=== PATIENT | male | born 1955 | race Caucasian/White ===

== ENCOUNTER 2023-03-25 05:25 | Inpatient (IN) | payer OTHER ==
[~2023-03-25] VITALS: Ht 170.2 cm; Wt 88.5 kg
[2023-03-25] MEDS ORDERED: ACETAMINOPHEN 500 MG TABLET ONE (05:39)
[2023-03-25] MEDS ORDERED: SCOPOLAMINE HYDROBROMIDE 1 MG PATCH .72 H (TRANSDERM-SCOP) TD ONE (05:39)
[2023-03-25] MEDS ORDERED: CELECOXIB 200 MG CAPSULE ONE (05:40)
[2023-03-25] MEDS ORDERED: oxyCODONE HCL 10 MG TAB.ER.12H PO ONE ×2 (05:40→06:00)
[2023-03-25] MEDS ORDERED: GABAPENTIN 300 MG CAPSULE ONE (05:40)
[2023-03-25] MEDS: CELECOXIB 200 MG CAPSULE PO ONE ×2 (06:00→06:20)
[2023-03-25] MEDS: ACETAMINOPHEN 500 MG TABLET PO ONE ×2 (06:00→06:20)
[2023-03-25] MEDS: GABAPENTIN 300 MG CAPSULE PO ONE ×2 (06:00→06:20)
[2023-03-25] MEDS: SCOPOLAMINE HYDROBROMIDE 1 MG PATCH .72 H (TRANSDERM-SCOP) TD ONE ×2 (06:00→06:20)
[2023-03-25] MEDS ORDERED: DIPHENHYDRAMINE HCL 25 MG CAPSULE PO PRN (07:15)
[2023-03-25] MEDS ORDERED: METOCLOPRAMIDE HCL 10 MG/2 ML VIAL IVP PRN (07:15)
[2023-03-25] MEDS ORDERED: NALOXONE HCL 0.4 MG/ML AMP (NARCAN) IVP PRN ×2 (07:15)
[2023-03-25] MEDS ORDERED: NALOXONE HCL 2 MG/2 ML SYR (NARCAN) IVP PRN (07:15)
[2023-03-25] MEDS ORDERED: DEXTROSE 50% JECT 50 ML DISP.SYRIN IVP PRN (07:15)
[2023-03-25] MEDS ORDERED: D5W 1,000 ML IV PRN (07:15)
[2023-03-25] MEDS ORDERED: LACTULOSE 20 GM/30 ML UDC PO PRN (07:15)
[2023-03-25] MEDS ORDERED: GLUCOSE (DEXTROSE) ORAL GEL -Adults PO PRN (07:15)
[2023-03-25] MEDS ORDERED: BISACODYL 10 MG/SUPPOSITORY RC PRN (07:15)
[2023-03-25] MEDS ORDERED: CEFAZOLIN SOD 2 GM in D5W 50 ML IV ONE (07:30)
[2023-03-25] MEDS ORDERED: BUPIVACAINE /PF 0.25% 30 ML VIAL INJ ONE (07:40)
[2023-03-25] MEDS ORDERED: TRANEXAMIC ACID 1,000 MG/10 ML VIAL ONE (07:40)
[2023-03-25] MEDS ORDERED: MIDAZOLAM HCL/PF 2 MG/2 ML SYRINGE ONE (07:40)
[2023-03-25] MEDS ORDERED: PROPOFOL 200MG/ 20ML VIAL (DIPRIVAN) IV ONE (07:40)
[2023-03-25] MEDS ORDERED: BUPIVACAINE /PF 0.5% 30 ML VIAL ONE (07:40)
[2023-03-25] MEDS ORDERED: fentaNYL CITRATE/PF 100 MCG/2 ML AMP ONE (07:40)
[2023-03-25] MEDS ORDERED: SEVOFLURANE 15 MIN GAS INH ONE (07:40)
[2023-03-25] MEDS ORDERED: ONDANSETRON HCL 4 MG/2 ML VIAL ONE (07:40)
[2023-03-25] MEDS ORDERED: METOCLOPRAMIDE HCL 10 MG/2 ML VIAL ONE (07:40)
[2023-03-25] MEDS ORDERED: GLYCOPYRROLATE 1 MG/5 ML VIAL ONE (07:40)
[2023-03-25] MEDS ORDERED: EPINEPHrine HCL 1 MG/ML VIAL ONE (07:40)
[2023-03-25] MEDS ORDERED: VANCOMYCIN HCL 1000 MG/VIAL IV ONE (07:40)
[2023-03-25] MEDS ORDERED: ESCI20TA PO (08:14)
[2023-03-25] MEDS ORDERED: GLIM2TAB PO (08:14)
[2023-03-25] MEDS ORDERED: TRAZ-250 PO (08:14)
[2023-03-25] MEDS ORDERED: OMEG10006 PO (08:14)
[2023-03-25] MEDS ORDERED: ROSU20TA2 PO (08:14)
[2023-03-25] MEDS ORDERED: LISI20TA30 PO (08:14)
[2023-03-25] MEDS ORDERED: FENO160 PO (08:14)
[2023-03-25] MEDS ORDERED: PRO40 PO (08:14)
[2023-03-25] MEDS ORDERED: PIOG15TA8 PO (08:14)
[2023-03-25] MEDS ORDERED: LEVO88TA5 PO (08:14)
[2023-03-25] MEDS ORDERED: KLO1 PO (08:14)
[2023-03-25] MEDS ORDERED: CARV25TA55 PO (08:14)
[2023-03-25] MEDS ORDERED: ONDANSETRON HCL 4 MG/2 ML VIAL IVP PRN ×2 (09:00→11:45)
[2023-03-25] MEDS ORDERED: HYDROmorphone 1 MG/ML INJ. CARTRIDGE IVP PRN ×4 (09:00→11:00)
[2023-03-25] MEDS ORDERED: LR 1,000 ML IV SCH (09:00)
[2023-03-25] MEDS ORDERED: KETOROLAC TROMETHAMINE 30 MG VIAL IVP PRN (09:00)
[2023-03-25] MEDS ORDERED: HYDROmorphone 1 MG/ML INJ. CARTRIDGE ONE ×2 (10:41→11:00)
[2023-03-25] MEDS: HYDROmorphone 2 MG/ML VIAL IVP PRN ×2 (10:45→11:00)
[2023-03-25] MEDS ORDERED: KETOROLAC TROMETHAMINE 30 MG VIAL ONE (10:50)
[2023-03-25] MEDS ORDERED: oxyCODONE HCL 5 MG TABLET PO PRN ×2 (11:00)
[2023-03-25] MEDS ORDERED: LORATADINE 10 MG TABLET PO PRN (11:00)
[2023-03-25] MEDS ORDERED: traMADol HCL HCL 50 MG TABLET (ULTRAM) PO PRN (11:00)
[2023-03-25] MEDS ORDERED: hydrALAZINE HCL 20 MG/ML VIAL ONE (11:56)
[2023-03-25] MEDS ORDERED: hydrALAZINE HCL 20 MG/ML VIAL IVP PRN (12:00)
[2023-03-25 12:30] VITALS: BP_SYST 159; PULSE 82; RESP 16; TEMP 97.9; O2SAT 99
[2023-03-25 12:35] VITALS: BP_SYST 159; PULSE 82; RESP 18; TEMP 97.9
[2023-03-25 13:00] VITALS: O2SAT 99
[2023-03-25] MEDS ORDERED: lisinopriL 20 MG TABLET PO ONE (14:00)
[2023-03-25] MEDS ORDERED: CARVEDILOL 25 MG TABLET (COREG) PO ONE (14:15)
[2023-03-25] MEDS: KETOROLAC TROMETHAMINE 10 MG TABLET (TORADOL) PO SCH ×2 (14:28→21:30)
[2023-03-25] MEDS: ACETAMINOPHEN 500 MG TABLET PO SCH ×2 (14:29→21:28)
[2023-03-25] MEDS: ceFAZolin SODIUM 2 GM in D5W 50 ML IV SCH ×2 (14:36→21:23)
[2023-03-25] MEDS ORDERED: TAMSULOSIN HCL 0.4 MG CAP PO ONE (16:00)
[2023-03-25 16:01] VITALS: BP_SYST 161; PULSE 84; RESP 18; TEMP 97.7; O2SAT 99
[2023-03-25] MEDS: INSULIN REGULAR, HUMAN 100 UNITS/ML, 3 ML VIAL (humuLIN R) SUBCUT PRN ×2 (16:41→21:33)
[2023-03-25 20:00] VITALS: BP_SYST 135; PULSE 77; RESP 18; TEMP 98.2; O2SAT 93
[2023-03-25] MEDS ORDERED: ATORVASTATIN 20 MG TABLET PO SCH (21:00)
[2023-03-25] MEDS: CARVEDILOL 25 MG TABLET (COREG) PO SCH ×2 (21:00→21:29)
[2023-03-25] MEDS: SENNOSIDES/DOCUSATE SODIUM 1 TAB TABLET(SENOKOT-S) PO SCH (21:27)
[2023-03-26] VITALS: BP_SYST 131; PULSE 69; RESP 18; TEMP 99; O2SAT 97
[2023-03-26] MEDS: ceFAZolin SODIUM 2 GM in D5W 50 ML IV SCH (06:02)
[2023-03-26] MEDS: ACETAMINOPHEN 500 MG TABLET PO SCH ×2 (06:26→13:34)
[2023-03-26] MEDS: KETOROLAC TROMETHAMINE 10 MG TABLET (TORADOL) PO SCH (06:27)
[2023-03-26] MEDS: INSULIN REGULAR, HUMAN 100 UNITS/ML, 3 ML VIAL (humuLIN R) SUBCUT PRN ×2 (06:31→12:01)
[2023-03-26 06:37] LABS: BASOPHILS % (AUTO) 0.6 % (0.0-2.0); EOSINOPHILS # (AUTO) 0.4 K/uL (0.0-0.4); EOSINOPHILS % (AUTO) 5.2 % (0.0-4.0); HEMATOCRIT 33.4 % (36-54); HEMOGLOBIN 11.1 g/dL (14.0-18.0); LYMPHOCYTES # (AUTO) 0.8 K/uL (1.0-5.5); LYMPHOCYTES % (AUTO) 10.3 % (20.5-51.5); MEAN CORPUSCULAR HEMOGLOBIN 29 pg (27-31); MEAN CORPUSCULAR HGB CONC 33 % (32-36); MEAN CORPUSCULAR VOLUME 88 fL (79.0-98.0); MONOCYTES # (AUTO) 0.6 K/uL (0.0-1.0); MONOCYTES % (AUTO) 8.5 % (1.7-9.3); NEUTROPHILS # (AUTO) 5.5 K/uL (1.8-7.7); NEUTROPHILS % (AUTO) 75.4 % (40.0-70.0); PLATELET COUNT (AUTO) 211 K/uL (130-430); RED BLOOD CELL COUNT(AUTO) 3.82 MIL/uL (4.2-6.2); RED CELL DISTRIBUTION WIDTH 13.4 % (9.0-15.0); WHITE BLOOD COUNT (AUTO) 7.3 K/uL (4.8-10.8)
[2023-03-26 07:01] LABS: CALCIUM 8.8 mg/dL (8.4-11.0); CREATININE 1.11 mg/dL (0.55-1.30); POTASSIUM 4.5 mmol/L (3.5-5.1)
[2023-03-26] MEDS ORDERED: LEVOTHYROXINE SODIUM 0.088 MG TABLET PO SCH (09:00)
[2023-03-26] MEDS ORDERED: PANTOPRAZOLE SODIUM 40 MG TAB PO SCH (09:00)
[2023-03-26] MEDS ORDERED: TAMSULOSIN HCL 0.4 MG CAP PO SCH (09:00)
[2023-03-26] MEDS ORDERED: ASPIRIN 81 MG TAB.CHEW PO SCH (09:00)
[2023-03-26] MEDS ORDERED: CITALOPRAM HYDROBROMIDE 20 MG TABLET PO SCH (09:00)
[2023-03-26] MEDS ORDERED: lisinopriL 20 MG TABLET PO SCH (09:00)
[2023-03-26] MEDS: CARVEDILOL 25 MG TABLET (COREG) PO SCH ×2 (09:00→09:43)
[2023-03-26] MEDS: SENNOSIDES/DOCUSATE SODIUM 1 TAB TABLET(SENOKOT-S) PO SCH (09:42)
[2023-03-26] MEDS ORDERED: CELECOXIB 200 MG CAPSULE PO SCH (11:00)
[2023-03-26 11:19] VITALS: BP_SYST 150; PULSE 80; RESP 16; TEMP 98; O2SAT 99
== END 2023-03-26 14:20 | disposition home health service (06) | DRG 470 ==
LOC: SMU 05:25
PROVIDERS: ADMIT Student in an Organized Health Care Education/Training Program; ATTEND Student in an Organized Health Care Education/Training Program
PROC: 0SRD0J9 Replacement of Left Knee Joint with Synthetic Substitute, Cemented, Open Approach (ICD-10-PCS; principal; 2023-03-25 07:40)
DX: M17.12 Unilateral primary osteoarthritis, left knee (principal)
CPT/HCPCS: 36415; 73560-TC; 80048; 82962; 85025; 87081; 88305; 88311; 96379; 97110-GP; 97116-GP; 97530-GP; C1713; C1776; J0171; J0360; J0690; J1170; J1885; J2405; J2704; J2765; J3010; J3370; J3465; J3490; J7060